=== PATIENT | female | born 1995 | race Caucasian/White ===

== ENCOUNTER 2017-12-01 21:56 | Emergency (ER) | payer OTHER, BC ==
[2017-12-01 22:45] LABS: KETONE, URINE AUTO RFX NEGATIVE (NEGATIVE); LEUKOCYTE ESTERASE UR AUTO RFX NEGATIVE (NEGATIVE); MUCUS, URINE RFX SMALL (NEGATIVE); NITRITE, URINE AUTO RFX NEGATIVE (NEGATIVE); RBC, URINE AUTO RFX TNTC /HPF (0-3); SPECIFIC GRAVITY UR AUTO RFX 1.019 (1.002-1.035); SQUAM EPITHELIAL CELL UR AURFX 2 /HPF (0-6); WBC, URINE AUTO RFX 4 /HPF (0-3)
[2017-12-01] MEDS: NS 1,000 ML IV (23:00)
[2017-12-02 00:43] LABS: BASO # 0.1 10^3/uL (0.0-0.2); BASO % 0.5 % (0.0-1.0); EOS # 0.1 10^3/uL (0.0-0.50); EOS % 1.1 % (0.0-3.0); HEMATOCRIT 37.5 % (36.0-47.0); HEMOGLOBIN 12.7 g/dl (12.0-15.5); IMMATURE GRANULOCYTE % 0.2 % (0-3.0); LYMPH # 3.7 10^3/uL (1.5-6.5); LYMPH % 39.6 % (24.0-44.0); MEAN CORPUSCULAR HEMOGLOBIN 30.4 pg (27.0-33.0); MEAN CORPUSCULAR HGB CONC 33.9 g/dl (32.0-36.5); MEAN CORPUSCULAR VOLUME 89.7 fl (80.0-96.0); MONO # 0.5 10^3/uL (0.0-0.8); MONO % 5.2 % (0.0-5.0); NEUTROPHILS % 53.4 % (36.0-66.0); PLATELET COUNT, AUTOMATED 265 10^3/uL (150-450); RED BLOOD COUNT 4.18 10^6/uL (4.00-5.40); RED CELL DISTRIBUTION WIDTH 12.9 % (11.5-14.5); WHITE BLOOD COUNT 9.4 10^3/uL (4.0-10.0)
== END 2017-12-02 01:03 | disposition home or self-care (01) ==
LOC: M ED 12-02 01:03
DX: N93.9 Abnormal uterine and vaginal bleeding, unspecified (principal); N83.292 Other ovarian cyst, left side; F17.200 Nicotine dependence, unspecified, uncomplicated; Z98.0 Intestinal bypass and anastomosis status; Z88.8 Allergy status to other drugs, medicaments and biological substances; Z79.899 Other long term (current) drug therapy
CPT/HCPCS: 76856

== ENCOUNTER → 2017-12-03 | Outpatient (REF) | payer OTHER ==
[2017-12-03 14:20] LABS: CONTROL LINE HCG INT CTR LINE PRESENT; HCG, SERUM QUALITATIVE NEGATIVE (NEGATIVE)
[2017-12-03 14:47] LABS: FREE T4 0.98 NG/DL (0.76-1.46)
[2017-12-03 15:53] LABS: LUTEINIZING HORMONE 0.1 mIU/mL
[2017-12-03 15:54] LABS: FOLLICLE STIMULATING HORMONE 1.3 mIU/mL
[2017-12-04 08:15] LABS: SEX HORMONE BINDING GLOBULIN 52.6 nmol/L (24.6-122.0)
[2017-12-04 08:15] LABS: DEHYDROEPIANDROSTERONE SULFATE 63.7 ug/dL (110.0-431.7)
== END ==
LOC: M LAB REF 13:29
DX: N92.0 Excessive and frequent menstruation with regular cycle (principal); N94.4 Primary dysmenorrhea

== ENCOUNTER 2018-07-09 19:20 | Emergency (ER) | payer OTHER ==
[~2018-07-09] VITALS: Ht 154.9 cm; Wt 83.6 kg
[~2018-07-09 19:20] MED LIST: ALPR0.25; SERT-155
[2018-07-09] MEDS ORDERED: NS 1,000 ML IV ONE (20:15)
[2018-07-09] MEDS ORDERED: METOCLOPRAMIDE INJ 10MG/2ML VIAL (J2765) IV ONE (20:15)
--- NOTE | 2018-07-09 20:32 | REP ---
Clinical: Acute abdominal pain. Technique: Ryder scale ultrasound using curved array transducer. Findings: The liver and pancreas are normal in contour, size, and echogenicity without focal hepatic or pancreatic lesions identified. The gallbladder is normal without gallstones, wall thickening or pericholecystic fluid. No biliary ductal dilatation is appreciated, and the common bile duct measures 2.5 mm diameter. The right kidney is normal in reniform shape without hydronephrosis and measures 10.1 x 5.9 x 3.9 cm. No ascites. Visualized portions of the abdominal aorta normal. Impression: Normal right upper quadrant and gallbladder abdominal ultrasound. Electronically Signed by Greg Gaming MD 07/09/2018 08:23 P
[2018-07-09 20:57] LABS: BASO % 0.5 % (0.0-1.0); EOS % 0.5 % (0.0-3.0); HEMATOCRIT 42.1 % (36.0-47.0); HEMOGLOBIN 13.9 g/dl (12.0-15.5); LYMPH # 3.3 10^3/uL (1.5-6.5); LYMPH % 41.1 % (24.0-44.0); MEAN CORPUSCULAR HEMOGLOBIN 28.9 pg (27.0-33.0); MEAN CORPUSCULAR VOLUME 87.5 fl (80.0-96.0); MONO # 0.5 10^3/uL (0.0-0.8); MONO % 6.1 % (0.0-5.0); NEUTROPHILS # 4.1 10^3/uL (1.8-7.7); NEUTROPHILS % 51.7 % (36.0-66.0); PLATELET COUNT, AUTOMATED 238 10^3/uL (150-450); RED BLOOD COUNT 4.81 10^6/uL (4.00-5.40); WHITE BLOOD COUNT 7.9 10^3/uL (4.0-10.0)
[2018-07-09] MEDS ORDERED: PANTOPRAZOLE 40MG INJ (PROTONIX) (C9113) IV ONE (21:00)
[2018-07-09 21:17] LABS: ALBUMIN 3.8 GM/DL (3.2-5.2); ALT/SGPT 22 U/L (12-78); BILIRUBIN,DIRECT 0.1 MG/DL (0.0-0.2); BILIRUBIN,TOTAL 0.4 MG/DL (0.2-1.0); BLOOD UREA NITROGEN 13 MG/DL (7-18); CALCIUM LEVEL 8.8 MG/DL (8.5-10.1); CARBON DIOXIDE LEVEL 28 MEQ/L (21-32); CHLORIDE LEVEL 106 MEQ/L (98-107); CREATININE FOR GFR 0.77 MG/DL (0.55-1.30); GAMMA GLUTAMYLTRANSPEPTIDASE 11 U/L (5-55); GLOMERULAR FILTRATION RATE > 60.0 (>60); GLUCOSE, FASTING 88 MG/DL (70-100); POTASSIUM SERUM 4.3 MEQ/L (3.5-5.1); SODIUM LEVEL 141 MEQ/L (136-145); TOTAL PROTEIN 7.1 GM/DL (6.4-8.2)
[2018-07-09] MEDS ORDERED: ONDA4TAB6 PO (22:24)
[2018-07-09] MEDS ORDERED: PROT1TAB2 PO (22:24)
--- NOTE | 2018-07-09 22:29 | REP ---
Clinical: Epigastric and abdominal pain. Technique: Upright view of the chest with supine and upright views of the abdomen and pelvis. Findings: Frontal upright view of the chest demonstrates no acute cardiopulmonary process or free air below the diaphragm to suspect pneumoperitoneum. Supine and upright views of the abdomen and pelvis demonstrate nonspecific bowel gas pattern without obstruction or perforation. No organomegaly. No abnormal calcifications. Skeletal structures normal for age. Impression: Nonspecific bowel gas pattern. Electronically Signed by Greg Gaming MD 07/09/2018 10:21 P
[2018-07-09 22:42] LABS: LIPASE 123 U/L (73-393)
[2018-07-09 23:00] VITALS: BP 106/57
== END 2018-07-09 23:02 | disposition home or self-care (01) ==
LOC: M ED 19:20
DX: R10.9 Unspecified abdominal pain (principal); R11.0 Nausea; Z98.84 Bariatric surgery status; Z72.0 Tobacco use; Z88.6 Allergy status to analgesic agent
CPT/HCPCS: 36415; 74021; 76705; 80053; 82248; 82977; 83690; 85025; 96374; 96375; 99284; C9113; J2765

== ENCOUNTER → 2018-07-24 | Outpatient (REF) | payer OTHER ==
[~2018-07-24] MED LIST changes: +ONDA4TAB6 PO; +PROT1TAB2 PO
== END ==
LOC: M SFHCLERA 10:13
PROVIDERS: ATTEND Physician Assistant
DX: J02.9 Acute pharyngitis, unspecified (principal)

== ENCOUNTER 2019-01-13 12:48 | Emergency (ER) | payer OTHER ==
[~2019-01-13] VITALS: Ht 152.4 cm; Wt 79.2 kg
[2019-01-13] MEDS ORDERED: HYOS125TA (13:06)
[2019-01-13] MEDS ORDERED: NS 1,000 ML IV ONE (13:15)
[2019-01-13] MEDS ORDERED: ONDANSETRON 4MG/2ML VIAL (J2405) IV ONE (13:15)
[2019-01-13 14:10] LABS: HEMOGLOBIN 14.2 g/dl (12.0-15.5); MEAN CORPUSCULAR HEMOGLOBIN 28.9 pg (27.0-33.0); MEAN CORPUSCULAR VOLUME 87.4 fl (80.0-96.0); PLATELET COUNT, AUTOMATED 247 10^3/uL (150-450); RED BLOOD COUNT 4.92 10^6/uL (4.00-5.40); WHITE BLOOD COUNT 7.9 10^3/uL (4.0-10.0)
[2019-01-13 14:23] LABS: BLOOD UREA NITROGEN 12 MG/DL (7-18); CARBON DIOXIDE LEVEL 26 MEQ/L (21-32); CHLORIDE LEVEL 107 MEQ/L (98-107); CREATININE FOR GFR 0.76 MG/DL (0.55-1.30); GLOMERULAR FILTRATION RATE > 60.0 (>60); GLUCOSE, FASTING 101 MG/DL (70-100); POTASSIUM SERUM 4.6 MEQ/L (3.5-5.1); SODIUM LEVEL 139 MEQ/L (136-145)
[2019-01-13] MEDS ORDERED: diphenhydrAMINE INJ 50MG/ML VIAL (J1200) IV ONE (15:45)
[2019-01-13] MEDS ORDERED: ACETAMINOPHEN 500 MG TAB PO ONE (15:45)
[2019-01-13] MEDS ORDERED: METOCLOPRAMIDE INJ 10MG/2ML VIAL (J2765) IV ONE (15:45)
[2019-01-13] MEDS ORDERED: ZOFR8TAB24 PO (17:35)
[2019-01-13 17:44] VITALS: BP 101/55
--- NOTE | 2019-01-14 13:11 | REP ---
CT of the abdomen pelvis without IV and oral contrast for right flank pain: There are no comparison CT studies. There are no renal, ureteral or bladder calculi. There is no hydronephrosis.. There is no perinephric stranding. The visualized lung payton are unremarkable. The unenhanced hepatic parenchyma, gallbladder, pancreas and spleen are unremarkable. There are surgical staple lines compatible with bariatric surgery. The adrenals are unremarkable. The abdominal aorta is unremarkable. There is no periaortic adenopathy or mass. There is no bowel distension or obstruction. The mesentery is unremarkable. Pelvis: The appendix is unremarkable. The uterus, adnexa and bladder are unremarkable. There is no adenopathy or ascites. The pelvic bowel loops are unremarkable. Impression: There are no renal, ureteral or bladder calculi. There is no hydronephrosis or perinephric stranding. There is bariatric surgery. Otherwise, essentially negative CT of the abdomen and pelvis. Electronically Signed by Danny Griffith MD 01/14/2019 01:02 P
== END 2019-01-13 18:18 | disposition home or self-care (01) ==
LOC: M ED 12:48
DX: R10.11 Right upper quadrant pain (principal); R10.31 Right lower quadrant pain; R11.2 Nausea with vomiting, unspecified; Z87.42 Personal history of other diseases of the female genital tract; Z87.442 Personal history of urinary calculi; Z87.448 Personal history of other diseases of urinary system; Z98.84 Bariatric surgery status; Z87.891 Personal history of nicotine dependence; Z79.899 Other long term (current) drug therapy; Z88.6 Allergy status to analgesic agent
CPT/HCPCS: 36415; 74176; 80048; 81001; 84702; 85027; 86140; 87088; 87186; 96374; 96375; 99284; J1200; J2405; J2765

== ENCOUNTER → 2019-01-14 | Outpatient (REF) | payer OTHER ==
[~2019-01-14] MED LIST changes: +HYOS125TA; -SERT-155; +SERT50TA29; +ZOFR8TAB24 PO
[2019-01-14 22:07] LABS: CHLAMYDIA DNA AMPLIFICATION NEGATIVE (NEGATIVE); GC DNA AMPLIFICATION NEGATIVE (NEGATIVE)
== END ==
LOC: M SFHCLERA 14:00
PROVIDERS: ATTEND Nurse Practitioner Family
DX: R10.9 Unspecified abdominal pain (principal)
CPT/HCPCS: 81002; 81025; 87088; 87186; 87661; G0463

== ENCOUNTER → 2019-06-07 | Outpatient (REF) | payer OTHER | LOC: M SFHCLERA 16:15 | PROVIDERS: ATTEND Nurse Practitioner Family | DX: R53.81 Other malaise (principal) ==

== ENCOUNTER 2019-12-30 07:45 | Day surgery (SDC) | payer OTHER ==
[~2019-12-30] VITALS: Ht 154.9 cm; Wt 80.9 kg
[~2019-12-30 07:45] MED LIST changes: +BUPIVACAINE/EPIN 0.5% 30 ML VIAL As Ordered ONE; +LIDOCAINE 1% MDV 20ML VIAL SQ PRN; +LIDOCAINE W/EPINEPHRINE 1% 20ML VIAL As Ordered ONE; +LR 1,000 ML IV ONE
[2019-12-30] MEDS ORDERED: LIDOCAINE 2% 100MG/5ML SDV (FOR ANES.) As Ordered ONE (08:48)
[2019-12-30] MEDS ORDERED: MIDAZOLAM INJ 2MG/2ML VIAL (J2250 PER 1MG) As Ordered ONE (08:48)
[2019-12-30] MEDS ORDERED: propofoL 200 MG/20 ML VIAL As Ordered ONE (08:48)
[2019-12-30] MEDS ORDERED: ROCURONIUM BROMIDE 50 MG/5 ML VIAL As Ordered ONE (08:48)
[2019-12-30] MEDS ORDERED: ONDANSETRON 4MG/2ML VIAL As Ordered ONE ×2 (08:48→10:35)
[2019-12-30] MEDS ORDERED: dexameTHASONE 4 MG/ML 1ML VIAL (J1100 PER 1MG) As Ordered ONE (08:48)
[2019-12-30] MEDS ORDERED: fentaNYL 100 MCG/2 ML INJECTION (J3010) As Ordered ONE ×2 (08:49→10:51)
[2019-12-30] MEDS ORDERED: SUGAMMADEX SODIUM 500 MG/5 ML VIAL (BRIDION) As Ordered ONE (10:02)
[2019-12-30] MEDS ORDERED: ACETAMINOPH W/CODEINE #3 TAB UD PO PRN (10:30)
[2019-12-30] MEDS ORDERED: LR 1,000 ML IV SCH ×2 (10:30→11:00)
[2019-12-30] MEDS ORDERED: oxyCODONE 5MG TAB As Ordered ONE (10:37)
[2019-12-30] MEDS: fentaNYL 100 MCG/2 ML INJECTION (J3010) IV PRN ×2 (10:55→11:00)
[2019-12-30] MEDS ORDERED: METOCLOPRAMIDE INJ 10MG/2ML VIAL (J2765 PER 1) IV PRN (11:00)
[2019-12-30] MEDS ORDERED: oxyCODONE 5MG TAB PO PRN (11:00)
[2019-12-30] MEDS ORDERED: ONDANSETRON 4MG/2ML VIAL IV PRN (11:00)
[2019-12-30 11:28] VITALS: BP 113/67
--- NOTE | 2020-01-17 10:22 | RO ---
DATE OF OPERATION: 12/30/19 PREOPERATIVE DIAGNOSIS: Chronic tonsillitis. POSTOPERATIVE DIAGNOSIS: Chronic tonsillitis. PROCEDURE: Tonsillectomy. Under general anesthesia, the patient intubated Welch-Enio mouth gag was inserted. The tonsil was infiltrated with lidocaine and 0.5% Marcaine. Using cautery, I dissected tonsil free from its bed on both sides. The base and apex and other areas were cauterized where necessary. The patient tolerated the procedure well. No blood loss. Patient was extubated and transferred to the recovery room in excellent condition. MISSY
--- NOTE | 2020-02-02 07:36 | RO ---
DATE OF OPERATION: 12/30/2019 PREOPERATIVE DIAGNOSIS: Chronic tonsillitis. POSTOPERATIVE DIAGNOSIS: Chronic tonsillitis. PROCEDURE: Tonsillectomy. SURGEON: Maurisio Yousif MD NOZZLEMAN: ANESTHESIA: General. DESCRIPTION OF PROCEDURE: Under general anesthesia, the patient intubated Welch-Enio mouth gag was inserted. The tonsil was infiltrated with lidocaine and 0.5% Marcaine. Using cautery, I dissected tonsil free from its bed on both sides. The base and apex and other areas were cauterized where necessary. The patient tolerated the procedure well. No blood loss. Patient was extubated and transferred to the recovery room in excellent condition. MISSY
== END 2019-12-30 12:10 | disposition home or self-care (01) ==
LOC: M SDC 07:45
PROVIDERS: ATTEND Otolaryngology
DX: J35.01 Chronic tonsillitis (principal); F41.9 Anxiety disorder, unspecified; Z79.899 Other long term (current) drug therapy
CPT/HCPCS: 42826; 81025; 88302; J1100; J2250; J2405; J2765; J3010

== ENCOUNTER 2020-03-04 21:58 | Emergency (ER) | payer OTHER ==
[~2020-03-04] VITALS: Ht 154.9 cm; Wt 79.4 kg
[~2020-03-04 21:58] MED LIST changes: -BUPIVACAINE/EPIN 0.5% 30 ML VIAL As Ordered ONE; -LIDOCAINE 1% MDV 20ML VIAL SQ PRN; -LIDOCAINE W/EPINEPHRINE 1% 20ML VIAL As Ordered ONE; -LR 1,000 ML IV ONE
[2020-03-04] MEDS ORDERED: NS 1,000 ML IV ONE (23:30)
[2020-03-05 00:14] LABS: BASO # 0.1 10^3/uL (0.0-0.2); BASO % 0.6 % (0.0-1.0); EOS # 0.1 10^3/uL (0.0-0.5); EOS % 0.9 % (0.0-3.0); HEMATOCRIT 41.2 % (36.0-47.0); HEMOGLOBIN 13.2 g/dl (12.0-15.5); LYMPH # 3.3 10^3/uL (1.5-5.0); LYMPH % 37.2 % (24.0-44.0); MEAN CORPUSCULAR VOLUME 87.3 fl (80.0-96.0); MONO # 0.6 10^3/uL (0.0-0.8); NEUTROPHILS # 4.7 10^3/uL (1.5-8.5); PLATELET COUNT, AUTOMATED 243 10^3/uL (150-450); RED BLOOD COUNT 4.72 10^6/uL (4.00-5.40); WHITE BLOOD COUNT 8.8 10^3/uL (4.0-10.0)
[2020-03-05 00:38] LABS: ALBUMIN 3.7 GM/DL (3.2-5.2); ALT/SGPT 18 U/L (12-78); AMYLASE 23 U/L (25-115); BILIRUBIN,DIRECT < 0.1 MG/DL (0.0-0.2); BILIRUBIN,TOTAL 0.2 MG/DL (0.2-1.0); BLOOD UREA NITROGEN 11 MG/DL (7-18); CALCIUM LEVEL 8.6 MG/DL (8.5-10.1); CARBON DIOXIDE LEVEL 25 MEQ/L (21-32); CHLORIDE LEVEL 109 MEQ/L (98-107); CREATININE FOR GFR 0.66 MG/DL (0.55-1.30); GLOMERULAR FILTRATION RATE > 60.0 (>60); GLUCOSE, FASTING 90 MG/DL (70-100); HCG, SERUM QUANTITATIVE 62952 MIU/ML; LIPASE 109 U/L (73-393); POTASSIUM SERUM 3.6 MEQ/L (3.5-5.1); SODIUM LEVEL 140 MEQ/L (136-145); TOTAL PROTEIN 6.8 GM/DL (6.4-8.2)
[2020-03-05 02:20] VITALS: BP 114/58
== END 2020-03-05 02:23 | disposition home or self-care (01) ==
LOC: M ED 21:58
DX: Z32.01 Encounter for pregnancy test, result positive (principal); K58.0 Irritable bowel syndrome with diarrhea; Z87.59 Personal history of other complications of pregnancy, childbirth and the puerperium; Z98.0 Intestinal bypass and anastomosis status
CPT/HCPCS: 80048; 80076; 81001; 82150; 83690; 84702; 85025; 87086; 96360; 99284; U0002